=== PATIENT | female | born 1975 | race Hispanic/Latino ===

== ENCOUNTER 2017-08-14 05:58 | Emergency (ER) | payer OTHER ==
[2017-08-14 07:08] LABS: Prothrombin Time 12.7 SEC (12.0-14.7)
[2017-08-14 07:24] LABS: #Eosinphils 0.1 thou/uL (0.0-0.7); #Lymphocytes 2.7 thou/uL (1.20-3.40); #Monocytes 0.5 thou/uL (0.11-0.59); #Neutrophils 4.7 thou/uL (1.40-6.50); %Basophils 0.1 % (0.0-1.0); %Eosinophils 1.3 % (0.0-10.0); %Lymphocytes 33.5 % (21.0-51.0); %Monocytes 6.5 % (0.0-10.0); Hematocrit 37.6 % (36.0-47.0); Mean Platelet Volume 8.4 fL (7.4-10.4); Red Blood Cell (RBC) Count 4.27 mill/uL (4.20-5.40)
[2017-08-14 07:50] LABS: ALT (SGPT) 93 U/L (8-55); AST (SGOT) 66 U/L (5-34); Alkaline Phosphatase 109 U/L (40-150); Anion Gap 15 mmol/L (10-20); BUN (Urea Nitrogen) 11 mg/dL (7.0-18.7); Bilirubin, Total 0.2 mg/dL (0.2-1.2); Calc. Creatinine Clearance 0 mL/min (70-130); Carbon Dioxide 22 mmol/L (22-29); Chloride 104 mmol/L (98-107); Estimated GFR-MDRD Greater than 90; Globulin 3.6 g/dL (2.4-3.5); Lipase 19 U/L (8-78); Protein, Total 7.3 g/dL (6.0-8.3)
[2017-08-14 07:54] LABS: Troponin I Less than 0.010 ng/mL (< 0.028)
--- NOTE | 2017-08-14 07:56 | RAD ---
CHEST 2 VIEWS: Date: 08/14/17 COMPARISON: 07/18/13. HISTORY: Chest pain. FINDINGS: Normal cardiac silhouette. Pulmonary vessels and hilum are normal. Costophrenic angles are clear. No mass. No consolidation. No pneumothorax or osseous abnormalities. IMPRESSION: No acute cardiopulmonary process. POS: [facility]
== END 2017-08-14 08:24 | disposition home or self-care (01) ==
LOC: ERS 05:58
DX: R07.89 Other chest pain (principal); R74.0 Nonspecific elevation of levels of transaminase and lactic acid dehydrogenase [LDH]; E11.9 Type 2 diabetes mellitus without complications
CPT/HCPCS: 36415; 71020; 80053; 81025; 82553; 83690; 84484; 85025; 85379; 85610; 93005

== ENCOUNTER 2017-11-16 19:37 | Emergency (ER) | payer OTHER ==
[2017-11-16 21:15] LABS: CKMB 0.7 ng/mL (0-6.6); Troponin I Less than 0.010 ng/mL (< 0.028)
--- NOTE | 2017-11-16 21:15 | RAD ---
CHEST TWO VIEWS: 11/16/17 COMPARISON: 08/14/17 study. Heart size and mediastinum are within normal limits. The lungs are clear of infiltrates. There are ar thritic changes of the spine. IMPRESSION: No active intrathoracic disease. POS: [facility]
--- NOTE | 2017-11-19 12:10 | EKG ---
Test Reason : CHESTPAIN Blood Pressure : / mmHG Vent. Rate : 086 BPM Atrial Rate : 086 BPM P-R Int : 142 ms QRS Dur : 078 ms QT Int : 380 ms P-R-T Axes : 053 024 022 degrees QTc Int : 454 ms Normal sinus rhythm Normal ECG Confirmed by STEVIE CARDOZA, LIAT ([id number]), photographic editor BRIANA GUZMÁN ([id number]) on 11/19/2017 12:10:01 PM Referred By: Confirmed By:LIAT HUBBARD MD
== END 2017-11-16 21:40 | disposition home or self-care (01) ==
LOC: ERS 19:37
DX: R07.81 Pleurodynia (principal); E11.9 Type 2 diabetes mellitus without complications; Z79.82 Long term (current) use of aspirin; Z79.84 Long term (current) use of oral hypoglycemic drugs
CPT/HCPCS: 36415; 71046; 82550; 82553; 84484; 93005

== ENCOUNTER 2018-06-16 00:22 | Emergency (ER) | payer OTHER ==
[2018-06-16 01:48] LABS: Hemoglobin 10.5 g/dL (12.0-16.0); Mean Corpuscular HGB CONC 33.5 g/dL (32.0-36.0); Mean Corpuscular Hemoglobin 25.2 pg (27.0-31.0); Mean Platelet Volume 9.1 fL (7.4-10.4); Platelet Count 225 thou/uL (130-400); RBC Distribution Width 15.8 % (11.5-14.5); Red Blood Cell (RBC) Count 4.18 mill/uL (4.20-5.40); White Blood Cell (WBC) Count 7.5 thou/uL (4.8-10.8)
[2018-06-16 01:54] LABS: ALT (SGPT) 104 U/L (8-55); AST (SGOT) 74 U/L (5-34); Albumin 3.8 g/dL (3.5-5.0); Alkaline Phosphatase 111 U/L (40-150); Anion Gap 11 mmol/L (10-20); BUN (Urea Nitrogen) 11 mg/dL (7.0-18.7); Bilirubin, Total 0.3 mg/dL (0.2-1.2); CK (CPK) 66 U/L (29-168); Calc. Creatinine Clearance 0 mL/min (70-130); Calcium 9.1 mg/dL (7.8-10.44); Carbon Dioxide 26 mmol/L (22-29); Chloride 103 mmol/L (98-107); Estimated GFR-MDRD 73; Globulin 3.8 g/dL (2.4-3.5); Glucose 205 mg/dL (70-105); Potassium 3.7 mmol/L (3.5-5.1); Protein, Total 7.6 g/dL (6.0-8.3); Sodium 136 mmol/L (136-145)
[2018-06-16 01:57] LABS: CKMB 0.6 ng/mL (0-6.6); Troponin I Less than 0.010 ng/mL (< 0.028)
[2018-06-16 02:15] LABS: #Eosinphils 0.1 thou/uL (0.0-0.7); #Lymphocytes 2.2 thou/uL (1.20-3.40); #Monocytes 0.5 thou/uL (0.11-0.59); #Neutrophils 4.7 thou/uL (1.40-6.50); %Basophils 0.4 % (0.0-1.0); %Eosinophils 0.8 % (0.0-10.0); %Lymphocytes 29.4 % (21.0-51.0); %Monocytes 6.8 % (0.0-10.0); %Neutrophils 62.6 % (42.0-75.0)
[2018-06-16 05:27] LABS: Troponin I Less than 0.010 ng/mL (< 0.028)
--- NOTE | 2018-06-16 07:55 | RAD ---
SINGLE VIEW OF THE CHEST: COMPARISON: 12/16/15. HISTORY: Chest pain. FINDINGS: Single view of the chest shows a normal sized cardiomediastinal silhouette. There is no evidence of c onsolidation, mass, or pleural effusion. The bones are unremarkable. IMPRESSION: No evidence of acute cardiopulmonary disease. POS: [facility]
--- NOTE | 2018-06-17 20:03 | EKG ---
Test Reason : Blood Pressure : / mmHG Vent. Rate : 084 BPM Atrial Rate : 084 BPM P-R Int : 148 ms QRS Dur : 082 ms QT Int : 382 ms P-R-T Axes : 053 022 029 degrees QTc Int : 451 ms Normal sinus rhythm Normal ECG Confirmed by ALTA MAC ([id number]), editor index YECENIA BARKLEY ([id number]) on 06/17/2018 8:03:23 PM Referred By: Confirmed By:ALTA MAC
== END 2018-06-16 04:45 | disposition home or self-care (01) ==
LOC: ERS 00:22
DX: R07.89 Other chest pain (principal); E11.9 Type 2 diabetes mellitus without complications; Z79.82 Long term (current) use of aspirin; Z79.84 Long term (current) use of oral hypoglycemic drugs
CPT/HCPCS: 36415; 71045; 80053; 82550; 82553; 83690; 84484; 85025; 93005

== ENCOUNTER 2018-07-19 11:23 | Emergency (ER) | payer OTHER ==
[2018-07-19 12:11] LABS: #Eosinphils 0.1 thou/uL (0.0-0.7); #Lymphocytes 1.8 thou/uL (1.20-3.40); #Monocytes 0.4 thou/uL (0.11-0.59); #Neutrophils 4.6 thou/uL (1.40-6.50); %Basophils 0.2 % (0.0-1.0); %Lymphocytes 25.8 % (21.0-51.0); %Monocytes 5.9 % (0.0-10.0); Hemoglobin 7.3 g/dL (12.0-16.0); Mean Corpuscular HGB CONC 31.6 g/dL (32.0-36.0); Mean Corpuscular Hemoglobin 23.6 pg (27.0-31.0); Mean Corpuscular Volume 74.8 fL (78.0-98.0); Mean Platelet Volume 10.5 fL (7.4-10.4); Platelet Count 210 thou/uL (130-400); RBC Distribution Width 15.7 % (11.5-14.5); Red Blood Cell (RBC) Count 3.07 mill/uL (4.20-5.40); White Blood Cell (WBC) Count 6.9 thou/uL (4.8-10.8)
[2018-07-19 12:33] LABS: ALT (SGPT) 92 U/L (8-55); AST (SGOT) 88 U/L (5-34); Albumin 3.7 g/dL (3.5-5.0); Alkaline Phosphatase 87 U/L (40-150); Anion Gap 11 mmol/L (10-20); BUN (Urea Nitrogen) 9 mg/dL (7.0-18.7); Bilirubin, Total 0.3 mg/dL (0.2-1.2); Calc. Creatinine Clearance 0 mL/min (70-130); Calcium 8.9 mg/dL (7.8-10.44); Carbon Dioxide 25 mmol/L (22-29); Chloride 105 mmol/L (98-107); Estimated GFR-MDRD 75; Globulin 3.7 g/dL (2.4-3.5); Glucose 288 mg/dL (70-105); Potassium 3.9 mmol/L (3.5-5.1); Protein, Total 7.4 g/dL (6.0-8.3); Sodium 137 mmol/L (136-145)
[2018-07-19 12:34] LABS: BHCG - Serum Negative (NEGATIVE); Pregs Control Background? CLEAR/WHITE (CLR/WHITE); Pregs Control Bar Appear? YES (CONTROL BAR)
[2018-07-19 12:55] LABS: Bilirubin Negative (Negative); Blood, Urine Moderate (Negative); Clarity CLEAR (Clear); Glucose, Urine (Dipstick) 500 mg/dL (Negative); Leukocyte Negative (Negative); Nitrite Negative (Negative); Protein, Urine (Dipstick) Negative (Neg-Trace); Specific Gravity, Urine 1.004 (1.002-1.036); Urobilinogen 0.2 mg/dL (0.2-1.0); pH, Urine 6.5 (5.0-9.0)
[2018-07-19 12:57] LABS: Bacteria/HPF None Seen HPF (None Seen); Hyaline Casts/LPF 0-3 HYALINE CAST LPF (0-3 Hyaline); RBC/HPF 0-3 HPF (0-3); Squamous Epithelial 0-3 HPF (0-3); WBC/HPF 0-3 HPF (0-3)
--- NOTE | 2018-07-19 14:14 | ULT ---
ULTRASOUND PELVIC COMPLETE: Date: 07/19/18 HISTORY: Vaginal bleeding for 3 weeks. Anemia. COMPARISON: None. TECHNIQUE: Real-time Reyes scale and color Doppler with spectral analysis of the pelvis performed transabdominal and transvaginal approach. FINDINGS: Endometrial thickness is 7.0 mm. Uterus measures 8.7 x 4.2 x 5.7 cm. The right ovary measures 2.8 x 2.7 x 2.2 cm. The left ovary measures 3.3 x 5.3 x 3.2 cm. No significa nt free fluid. There is a large simple cyst in the left ovary measuring up to 3.0 cm. There is a hypo echoic structure in the right ovary measuring 1.3 x 1.5 cm. Small junctional zone cyst seen of the ut erine fundus. IMPRESSION: 1. Junctional zone cyst of the uterine fundus can be seen with adenomyosis. 2. Likely a large left ovarian cyst measuring up to 3.0 cm. 3. Hypoechoic focus within the right ovary, not definitively a simple cyst. This could be a complica kenyetta cyst versus less likely endometrioma. A follow-up in 6 months is recommended. POS: [facility]
[2018-07-19] MEDS ORDERED: Ibuprofen 200 MG TAB ONE (16:29)
--- NOTE | 2018-07-20 00:40 | CON ---
DATE OF CONSULTATION: 07/19/2018 CONSULTING PHYSICIAN: Jeff Bell MD, Emergency Department. CHIEF COMPLAINT: Vaginal bleeding. HISTORY OF PRESENT ILLNESS: A 42-year-old para [address] Church's office for evaluati on of heavy vaginal bleeding with symptomatic anemia. The patient had a blood count checked at Dr. Greg cuenca's office and was found to be 7.5. The patient reports a 3-week history of heavy vaginal bleedi ng. Prior to this, she had regular monthly cycles that were not heavy at all. She reports with this bleeding episode, she has had cramping with the most cramps today that were debilitating. Dr. Landon ramírez gave her a prescription for tranexamic acid, which has completely stopped the bleeding at this poin t. She is continuing to have some cramping, but is feeling much better. PAST MEDICAL HISTORY: Type 2 diabetes. PAST SURGICAL HISTORY: None. MEDICATIONS: Metformin 1000 mg a day. SOCIAL HISTORY: Negative for tobacco, alcohol, or drug abuse. ALLERGIES: No known drug allergies. FAMILY HISTORY: Negative for breast, ovary, uterine, or colon cancer. PHYSICAL EXAMINATION: VITAL SIGNS: Blood pressure 110/71, pulse 94, respiratory rate 16, temperature 97.4. GENERAL: Awake, alert, in no acute distress. CHEST: Nonlabored breathing. ABDOMEN: Obese, soft, mildly tender to palpation of the lower abdomen. No guarding or rebound. PELVIC: Deferred. LABORATORY DATA: Hemoglobin 7.3, hematocrit 22.9. Chemistry: Glucose 288. AST and ALT are mildly elevated. IMAGING: Transvaginal ultrasound revealed a junctional zone cyst of the uterine fundus; a left ovari an cyst measuring 3 cm; a hypoechoic focus within the right ovary, possibly indicating a complex cyst versus endometrioma; endometrial lining 7 mm. ASSESSMENT AND PLAN: A 42-year-old para 3 with abnormal uterine bleeding and symptomatic anemia. Th e tranexamic acid has stopped the bleeding, and she has a continued prescription for the next 5 days. She was instructed to continue taking that. Dr. Thomas Vidal will work her into clinic to be seen f or further evaluation and management of her abnormal bleeding. The patient will receive 1 unit of bl ood prior to discharge home today. Thank you very much for the consultation. Please let me know if you have any further questions.
== END 2018-07-19 17:20 | disposition home or self-care (01) ==
LOC: ERS 11:23
DX: D64.9 Anemia, unspecified (principal); E11.9 Type 2 diabetes mellitus without complications; Z79.84 Long term (current) use of oral hypoglycemic drugs
CPT/HCPCS: 36430; 76856; 80053; 81003; 81015; 84443; 84703; 85025; 85610; 85730; 86850; 86900; 86901; P9016

== ENCOUNTER 2019-11-08 02:46 | Emergency (ER) | payer OTHER ==
[2019-11-08 03:04] LABS: #Basophils 0.1 thou/uL (0.0-0.2); #Eosinphils 0.1 thou/uL (0.0-0.7); #Lymphocytes 2.9 thou/uL (1.20-3.40); #Monocytes 0.5 thou/uL (0.11-0.59); #Neutrophils 4.2 thou/uL (1.40-6.50); %Basophils 1.2 % (0.0-1.0); %Lymphocytes 36.8 % (21.0-51.0); %Monocytes 6.8 % (0.0-10.0); %Neutrophils 54.2 % (42.0-75.0); Hemoglobin 8.9 g/dL (12.0-16.0); Mean Corpuscular HGB CONC 32.6 g/dL (32.0-36.0); Mean Corpuscular Volume 79.7 fL (78.0-98.0); Mean Platelet Volume 8.9 fL (7.4-10.4); Platelet Count 225 thou/uL (130-400); RBC Distribution Width 13.7 % (11.5-14.5); Red Blood Cell (RBC) Count 3.43 mill/uL (4.20-5.40); White Blood Cell (WBC) Count 7.7 thou/uL (4.8-10.8)
[2019-11-08] MEDS ORDERED: Aspirin Chewable 81 MG TAB ONE (03:25)
[2019-11-08 03:26] LABS: ALT (SGPT) 44 U/L (8-55); AST (SGOT) 35 U/L (5-34); Albumin 3.7 g/dL (3.5-5.0); Alkaline Phosphatase 88 U/L (40-110); Anion Gap 13 mmol/L (10-20); BUN (Urea Nitrogen) 11 mg/dL (7.0-18.7); Bilirubin, Total 0.2 mg/dL (0.2-1.2); CK (CPK) 85 U/L (29-168); Calc. Creatinine Clearance 0 mL/min (70-130); Calcium 8.5 mg/dL (7.8-10.44); Carbon Dioxide 25 mmol/L (22-29); Chloride 105 mmol/L (98-107); Estimated GFR-MDRD 75; Globulin 3.3 g/dL (2.4-3.5); Glucose 156 mg/dL (70-105); Potassium 3.6 mmol/L (3.5-5.1); Sodium 139 mmol/L (136-145)
--- NOTE | 2019-11-08 07:57 | RAD ---
PORTABLE CHEST: HISTORY: Chest pain. FINDINGS: Lungs are clear of infiltrate. Heart and mediastinum appear normal. Vasculature normal. IMPRESSION: No acute process. POS: [facility]
== END 2019-11-08 06:46 | disposition home or self-care (01) ==
LOC: ERS 02:46
DX: R07.89 Other chest pain (principal); D64.9 Anemia, unspecified; G56.00 Carpal tunnel syndrome, unspecified upper limb; E11.9 Type 2 diabetes mellitus without complications; Z79.84 Long term (current) use of oral hypoglycemic drugs
CPT/HCPCS: 36415; 71045; 80053; 82550; 84484; 85025; 93005

== ENCOUNTER 2020-01-13 07:05 | Emergency (ER) | payer OTHER ==
--- NOTE | 2020-01-13 08:23 | RAD ---
EXAM: CHEST ONE VIEW HISTORY: Cough and shortness of breath for one week. COMPARISON: 11/08/2019 FINDINGS: The cardiac silhouette and pulmonary vasculature is within normal limits. The lungs are clear. The os seous structures are intact. Chest is stable compared to prior exam. IMPRESSION: No acute cardiopulmonary process.
== END 2020-01-13 09:50 | disposition home or self-care (01) ==
LOC: ERS 07:05
DX: B34.9 Viral infection, unspecified (principal); E11.9 Type 2 diabetes mellitus without complications; Z79.84 Long term (current) use of oral hypoglycemic drugs
CPT/HCPCS: 71045; 93005; U0001

== ENCOUNTER 2020-02-01 01:33 | Emergency (ER) | payer OTHER ==
[2020-02-01] MEDS ORDERED: Aspirin Chewable 81 MG TAB ONE (01:45)
[2020-02-01 01:59] LABS: #Basophils 0.1 thou/uL (0.0-0.2); #Eosinphils 0.1 thou/uL (0.0-0.7); #Lymphocytes 2.5 thou/uL (1.20-3.40); #Monocytes 0.6 thou/uL (0.11-0.59); %Basophils 0.8 % (0.0-1.0); %Eosinophils 1.6 % (0.0-10.0); %Lymphocytes 34.2 % (21.0-51.0); %Monocytes 8.4 % (0.0-10.0); %Neutrophils 55.1 % (42.0-75.0); Hemoglobin 10.4 g/dL (12.0-16.0); Mean Corpuscular HGB CONC 32.9 g/dL (32.0-36.0); Mean Corpuscular Volume 75.9 fL (78.0-98.0); Mean Platelet Volume 9.4 fL (7.4-10.4); Platelet Count 205 thou/uL (130-400); RBC Distribution Width 17.3 % (11.5-14.5); Red Blood Cell (RBC) Count 4.14 mill/uL (4.20-5.40); White Blood Cell (WBC) Count 7.3 thou/uL (4.8-10.8)
[2020-02-01 02:23] LABS: ALT (SGPT) 54 U/L (8-55); AST (SGOT) 41 U/L (5-34); Albumin 3.8 g/dL (3.5-5.0); Alkaline Phosphatase 90 U/L (40-110); Anion Gap 12 mmol/L (10-20); BUN (Urea Nitrogen) 9 mg/dL (7.0-18.7); Bilirubin, Total 0.3 mg/dL (0.2-1.2); Calc. Creatinine Clearance 0 mL/min (70-130); Calcium 9.2 mg/dL (7.8-10.44); Carbon Dioxide 26 mmol/L (22-29); Chloride 103 mmol/L (98-107); Estimated GFR-MDRD 82; Globulin 3.5 g/dL (2.4-3.5); Glucose 190 mg/dL (70-105); Potassium 3.6 mmol/L (3.5-5.1); Protein, Total 7.3 g/dL (6.0-8.3); Sodium 137 mmol/L (136-145)
--- NOTE | 2020-02-01 07:49 | RAD ---
PORTABLE CHEST: DATE: 02/01/2020. PROVIDED CLINICAL HISTORY: Chest pain. FINDINGS: Comparison 01/13/2020. Cardiac and mediastinal silhouette is within normal limits. Lungs appear vu r. No pleural fluid or pneumothorax apparent. IMPRESSION: No evidence for an acute cardiopulmonary process. POS: [facility]
--- NOTE | 2020-02-02 09:30 | EKG ---
Test Reason : Blood Pressure : / mmHG Vent. Rate : 083 BPM Atrial Rate : 083 BPM P-R Int : 150 ms QRS Dur : 082 ms QT Int : 392 ms P-R-T Axes : 060 026 038 degrees QTc Int : 460 ms Normal sinus rhythm Normal ECG Confirmed by STEPHEN CARDOZA, CHARLIE Garza ([id number]), design editor BRIANA GUZMÁN ([id number]) on 02/02/2020 9:30:29 AM Referred By: Confirmed By:CHARLIE MITCHELL MD
== END 2020-02-01 02:41 | disposition home or self-care (01) ==
LOC: ERS 01:33
DX: R07.89 Other chest pain (principal); E11.9 Type 2 diabetes mellitus without complications; D64.9 Anemia, unspecified; E55.9 Vitamin D deficiency, unspecified; Z79.899 Other long term (current) drug therapy; Z79.84 Long term (current) use of oral hypoglycemic drugs
CPT/HCPCS: 36415; 71045; 80053; 84484; 85025; 93005

== ENCOUNTER 2020-07-31 06:54 | Outpatient (CLI) | payer OTHER ==
--- NOTE | 2020-07-31 07:44 | ULT ---
Sonogram abdomen complete HISTORY: Abnormal liver function tests. FINDINGS: Gallbladder has a normal appearance without stone evident. Common duct is 0.4 cm. Liver measures up to 17.9 cm without focal abnormality. No free fluid. The spleen, kidneys, and visualized portions of the abdominal aorta, IVC, and pancreas are within nor mal limits. IMPRESSION : Enlarged liver 17.9 cm. No abnormalities otherwise demonstrated.
== END 2020-07-31 06:55 | disposition home or self-care (01) ==
LOC: BICULT 06:54
PROVIDERS: ATTEND Physician Assistant
DX: R79.89 Other specified abnormal findings of blood chemistry (principal); R16.0 Hepatomegaly, not elsewhere classified
CPT/HCPCS: 93975

== ENCOUNTER 2020-08-07 13:36 | Outpatient (CLI) | payer OTHER | END 2020-08-07 13:37 | disposition home or self-care (01) | LOC: DTY/OP 13:36 | PROVIDERS: ATTEND Internal Medicine | DX: E66.01 Morbid (severe) obesity due to excess calories (principal) | CPT/HCPCS: 97802 ==

== ENCOUNTER 2020-10-01 00:17 | Emergency (ER) | payer OTHER ==
[2020-10-01 01:29] LABS: #Basophils 0.1 thou/uL (0.0-0.2); #Eosinphils 0.1 thou/uL (0.0-0.7); #Lymphocytes 2.6 thou/uL (1.20-3.40); #Monocytes 0.6 thou/uL (0.11-0.59); #Neutrophils 4.5 thou/uL (1.40-6.50); %Basophils 0.7 % (0.0-1.0); %Eosinophils 1.7 % (0.0-10.0); %Lymphocytes 32.8 % (21.0-51.0); %Neutrophils 56.8 % (42.0-75.0); Hemoglobin 9.6 g/dL (12.0-16.0); Mean Corpuscular HGB CONC 33.9 g/dL (32.0-36.0); Mean Corpuscular Hemoglobin 28.4 pg (27.0-31.0); Mean Corpuscular Volume 83.9 fL (78.0-98.0); Mean Platelet Volume 8.9 fL (7.4-10.4); Platelet Count 254 thou/uL (130-400); Red Blood Cell (RBC) Count 3.38 mill/uL (4.20-5.40); White Blood Cell (WBC) Count 7.8 thou/uL (4.8-10.8)
[2020-10-01 01:35] LABS: BHCG - Serum Negative (NEGATIVE); Pregs Control Background? CLEAR/WHITE (CLR/WHITE); Pregs Control Bar Appear? YES (CONTROL BAR)
[2020-10-01 01:43] LABS: ALT (SGPT) 62 U/L (8-55); AST (SGOT) 44 U/L (5-34); Albumin 3.6 g/dL (3.5-5.0); Alkaline Phosphatase 87 U/L (40-110); Anion Gap 13 mmol/L (10-20); BUN (Urea Nitrogen) 9 mg/dL (7.0-18.7); Bilirubin, Total 0.2 mg/dL (0.2-1.2); Calc. Creatinine Clearance 0 mL/min (70-130); Calcium 8.7 mg/dL (7.8-10.44); Carbon Dioxide 23 mmol/L (22-29); Chloride 106 mmol/L (98-107); Globulin 3.2 g/dL (2.4-3.5); Glucose 206 mg/dL (70-105); Potassium 3.8 mmol/L (3.5-5.1); Protein, Total 6.8 g/dL (6.0-8.3); Sodium 138 mmol/L (136-145)
--- NOTE | 2020-10-01 07:46 | RAD ---
EXAM: Single view of the chest HISTORY: Chest pressure and tightness COMPARISON: 06/04/2020 FINDINGS: Single view of the chest shows a normal sized cardiomediastinal silhouette. There is no joyce dence of consolidation, mass, or pleural effusion. No acute osseous abnormality. IMPRESSION: No evidence of acute cardiopulmonary disease
--- NOTE | 2020-10-04 13:29 | EKG ---
Test Reason : Blood Pressure : / mmHG Vent. Rate : 078 BPM Atrial Rate : 078 BPM P-R Int : 148 ms QRS Dur : 082 ms QT Int : 402 ms P-R-T Axes : 059 024 037 degrees QTc Int : 458 ms Normal sinus rhythm Normal ECG Confirmed by VINEET CATHERINE M.D. ([id number]), clinical editor BRIANA GUZMÁN ([id number]) on 10/04/2020 1:29:37 PM Referred By: Confirmed By:VINEET CATHERINE M.D.
== END 2020-10-01 02:16 | disposition home or self-care (01) ==
LOC: ERS 00:17
DX: R07.2 Precordial pain (principal); E11.9 Type 2 diabetes mellitus without complications; D64.9 Anemia, unspecified; Z79.84 Long term (current) use of oral hypoglycemic drugs; Z79.899 Other long term (current) drug therapy
CPT/HCPCS: 36415; 71045; 80053; 84484; 84703; 85025; 93005

== ENCOUNTER 2020-10-11 06:06 | Emergency (ER) | payer OTHER ==
[2020-10-11] MEDS ORDERED: Ketorolac Tromethamine 30 MG/ML VIAL ONE (06:33)
[2020-10-11] MEDS ORDERED: diphenhydrAMINE 50 MG/ML VIAL ONE (06:33)
[2020-10-11] MEDS ORDERED: Metoclopramide 10 MG/10 ML UDCUP ONE (06:33)
[2020-10-11] MEDS ORDERED: Metoclopramide HCl 10 MG/2 ML VIAL ONE (06:34)
== END 2020-10-11 07:38 | disposition home or self-care (01) ==
LOC: ERS 06:06
DX: R20.0 Anesthesia of skin (principal); R51.9 Headache, unspecified; E11.9 Type 2 diabetes mellitus without complications; D64.9 Anemia, unspecified; Z79.84 Long term (current) use of oral hypoglycemic drugs; Z79.899 Other long term (current) drug therapy
CPT/HCPCS: 93005; 96374; 96375; J1200; J1885; J2765

== ENCOUNTER 2020-11-02 19:22 | Emergency (ER) | payer OTHER | END 2020-11-02 22:00 | disposition home or self-care (01) | LOC: ERS 19:22 | DX: K56.41 Fecal impaction (principal); E11.9 Type 2 diabetes mellitus without complications; D64.9 Anemia, unspecified; Z79.899 Other long term (current) drug therapy; Z79.84 Long term (current) use of oral hypoglycemic drugs | CPT/HCPCS: 99283 ==

== ENCOUNTER 2020-11-05 09:22 | Outpatient (CLI) | payer OTHER ==
--- NOTE | 2020-11-05 09:58 | RAD ---
EXAM: XR Abdomen 2 View PROVIDED CLINICAL HISTORY: Constipation, unspecified. COMPARISON: None FINDINGS: Limited visualized lung bases are clear. Bowel gas pattern is nonspecific with small amount of retain ed fecal material visualized in the colon. No suspicious calcifications are seen. The osseous structures have a normal appearance. IMPRESSION: Nonspecific bowel gas pattern.
== END 2020-11-05 09:23 | disposition home or self-care (01) ==
LOC: BICRAD 09:22
PROVIDERS: ATTEND Physician Assistant Medical
DX: K21.9 Gastro-esophageal reflux disease without esophagitis (principal); K59.00 Constipation, unspecified
CPT/HCPCS: 74019

== ENCOUNTER 2020-12-26 08:38 | Outpatient (CLI) | payer OTHER | END 2020-12-26 08:39 | disposition home or self-care (01) | LOC: NM 08:38 | PROVIDERS: ATTEND Physician Assistant | DX: R10.11 Right upper quadrant pain (principal) | CPT/HCPCS: 78227; A9537 ==

== ENCOUNTER 2021-01-14 01:33 | Emergency (ER) | payer OTHER ==
[2021-01-14] MEDS ORDERED: Ondansetron ODT 4 MG TAB ONE (02:03)
[2021-01-14 02:28] LABS: #Eosinphils 0.1 thou/uL (0.0-0.7); #Monocytes 0.5 thou/uL (0.11-0.59); #Neutrophils 10.1 thou/uL (1.40-6.50); %Basophils 0.2 % (0.0-1.0); %Eosinophils 0.5 % (0.0-10.0); %Lymphocytes 8.7 % (21.0-51.0); %Monocytes 4.4 % (0.0-10.0); %Neutrophils 86.3 % (42.0-75.0); Hemoglobin 11.9 g/dL (12.0-16.0); Mean Corpuscular HGB CONC 33.1 g/dL (32.0-36.0); Mean Corpuscular Hemoglobin 26.8 pg (27.0-31.0); Mean Corpuscular Volume 80.7 fL (78.0-98.0); Mean Platelet Volume 9.4 fL (7.4-10.4); Platelet Count 208 thou/uL (130-400); RBC Distribution Width 15.6 % (11.5-14.5); Red Blood Cell (RBC) Count 4.44 mill/uL (4.20-5.40); White Blood Cell (WBC) Count 11.7 thou/uL (4.8-10.8)
[2021-01-14 02:43] LABS: BHCG - Serum Negative (NEGATIVE); Pregs Control Background? CLEAR/WHITE (CLR/WHITE); Pregs Control Bar Appear? YES (CONTROL BAR)
[2021-01-14 02:55] LABS: ALT (SGPT) 75 U/L (8-55); AST (SGOT) 58 U/L (5-34); Albumin 3.7 g/dL (3.5-5.0); Alkaline Phosphatase 97 U/L (40-110); Anion Gap 14 mmol/L (10-20); BUN (Urea Nitrogen) 13 mg/dL (7.0-18.7); Bilirubin, Total 0.4 mg/dL (0.2-1.2); Calc. Creatinine Clearance 0 mL/min (70-130); Calcium 8.9 mg/dL (7.8-10.44); Carbon Dioxide 24 mmol/L (22-29); Chloride 101 mmol/L (98-107); Globulin 3.9 g/dL (2.4-3.5); Glucose 253 mg/dL (70-105); Lipase 17 U/L (8-78); Potassium 3.9 mmol/L (3.5-5.1); Protein, Total 7.6 g/dL (6.0-8.3); Sodium 135 mmol/L (136-145)
== END 2021-01-14 03:57 | disposition home or self-care (01) ==
LOC: ERS 01:33
DX: R11.2 Nausea with vomiting, unspecified (principal); R19.7 Diarrhea, unspecified; E11.9 Type 2 diabetes mellitus without complications; D64.9 Anemia, unspecified; Z20.822 Contact with and (suspected) exposure to COVID-19
CPT/HCPCS: 71045; 80053; 83690; 84484; 84703; 85025; 87635; 93005; 94760; 96360; 96361; Q0162; U0003; U0005

== ENCOUNTER 2021-02-26 14:05 | Outpatient (CLI) | payer OTHER | END 2021-02-26 14:06 | disposition home or self-care (01) | LOC: BICRAD 14:05 | PROVIDERS: ATTEND Physician Assistant Medical | DX: K21.9 Gastro-esophageal reflux disease without esophagitis (principal); R07.9 Chest pain, unspecified; R68.89 Other general symptoms and signs | CPT/HCPCS: 71046 ==

== ENCOUNTER 2021-11-09 12:20 | Outpatient (CLI) | payer BC | END 2021-11-09 12:21 | disposition home or self-care (01) | LOC: BICRAD 12:20 | PROVIDERS: ATTEND Family Medicine | DX: R05.9 Cough, unspecified (principal) | CPT/HCPCS: 71046 ==

== ENCOUNTER 2021-11-12 05:01 | Emergency (ER) | payer BC ==
[2021-11-12] MEDS ORDERED: Aspirin Chewable 81 MG TAB ONE (05:20)
[2021-11-12 05:36] LABS: #Eosinphils 0.1 thou/uL (0.0-0.7); #Lymphocytes 2.9 thou/uL (1.20-3.40); #Monocytes 0.6 thou/uL (0.11-0.59); #Neutrophils 5.3 thou/uL (1.40-6.50); %Basophils 0.5 % (0.0-1.0); %Eosinophils 1.2 % (0.0-10.0); %Lymphocytes 32.4 % (21.0-51.0); %Monocytes 6.6 % (0.0-10.0); %Neutrophils 59.4 % (42.0-75.0); Mean Corpuscular HGB CONC 31.4 g/dL (32.0-36.0); Mean Corpuscular Volume 73.3 fL (78.0-98.0); Mean Platelet Volume 9.6 fL (7.4-10.4); Platelet Count 261 thou/uL (130-400); Red Blood Cell (RBC) Count 4.36 mill/uL (4.20-5.40)
[2021-11-12 05:56] LABS: ALT (SGPT) 61 U/L (8-55); AST (SGOT) 42 U/L (5-34); Albumin 3.8 g/dL (3.5-5.0); Alkaline Phosphatase 108 U/L (40-110); Anion Gap 12 mmol/L (10-20); BUN (Urea Nitrogen) 8 mg/dL (7.0-18.7); Bilirubin, Total 0.3 mg/dL (0.2-1.2); Calc. Creatinine Clearance 0 mL/min (70-130); Calcium 9.1 mg/dL (7.8-10.44); Carbon Dioxide 25 mmol/L (22-29); Chloride 101 mmol/L (98-107); Glucose 186 mg/dL (70-105); Lipase 26 U/L (8-78); Potassium 3.5 mmol/L (3.5-5.1); Protein, Total 7.8 g/dL (6.0-8.3); Sodium 134 mmol/L (136-145)
== END 2021-11-12 06:31 | disposition home or self-care (01) ==
LOC: ERS 05:01
DX: R07.2 Precordial pain (principal); E11.9 Type 2 diabetes mellitus without complications; D64.9 Anemia, unspecified; Z79.84 Long term (current) use of oral hypoglycemic drugs
CPT/HCPCS: 71045; 80053; 83690; 84484; 85025; 93005

== ENCOUNTER 2023-08-24 08:15 | Outpatient (CLI) | payer BC | END 2023-08-24 08:16 | disposition home or self-care (01) | LOC: ULT 08:15 | PROVIDERS: ATTEND Nurse Practitioner Family | DX: I82.403 Acute embolism and thrombosis of unspecified deep veins of lower extremity, bilateral (principal) | CPT/HCPCS: 93970 ==